=== PATIENT | male | born 1930 | race Native Hawaiian/Other Pacific Islander ===

== ENCOUNTER 2016-10-14 12:05 | Day surgery (SDC) | payer OTHER | END 2016-10-14 14:40 | disposition home or self-care (01) | LOC: OR 12:05 | PROC: 08RJ3JZ Replacement of Right Lens with Synthetic Substitute, Percutaneous Approach (ICD-10-PCS; principal; 2016-10-14) | DX: H25.811 Combined forms of age-related cataract, right eye (principal); H52.221 Regular astigmatism, right eye | CPT/HCPCS: 66984; V2632 ==

== ENCOUNTER 2016-11-11 08:23 | Day surgery (SDC) | payer OTHER ==
[~2016-11-11] VITALS: Ht 30.5 cm; Wt 0.5 kg
== END 2016-11-11 10:12 | disposition home or self-care (01) ==
LOC: OR 08:23
PROC: 08RK3JZ Replacement of Left Lens with Synthetic Substitute, Percutaneous Approach (ICD-10-PCS; principal; 2016-11-11)
DX: H25.812 Combined forms of age-related cataract, left eye (principal); H52.222 Regular astigmatism, left eye
CPT/HCPCS: 66984; V2632

== ENCOUNTER 2018-12-24 12:03 | Outpatient (CLI) | payer OTHER ==
[2018-12-24] MEDS ORDERED: BENICAR40 MG PO (12:32)
[2018-12-24] MEDS ORDERED: MIRAPEX0.25 MG PO (12:35)
[2018-12-24] MEDS ORDERED: METO50TA27 PO (12:36)
[2018-12-24] MEDS ORDERED: AMITRIPTYLIN50 MG PO (12:37)
== END 2018-12-24 12:10 | disposition short-term general hospital (02) ==
LOC: AMB 12:03
DX: R00.0 Tachycardia, unspecified (principal); R06.02 Shortness of breath
CPT/HCPCS: A0425; A0427

== ENCOUNTER 2018-12-24 12:13 | Emergency (ER) | payer OTHER ==
[~2018-12-24] VITALS: Ht 172.7 cm; Wt 90.7 kg
[2018-12-24 12:22] VITALS: TEMP 97.3
[2018-12-24] MEDS ORDERED: BENICAR40 MG PO (12:32)
[2018-12-24] MEDS ORDERED: MIRAPEX0.25 MG PO (12:35)
[2018-12-24] MEDS ORDERED: METO50TA27 PO (12:36)
[2018-12-24] MEDS ORDERED: AMITRIPTYLIN50 MG PO (12:37)
[2018-12-24 12:53] VITALS: BP 106/71
[2018-12-24 13:02] LABS: PLATELET COUNT 283 K/uL (142-355)
[2018-12-24 13:09] LABS: POTASSIUM 4.2 mmol/L (3.6-5.2)
== END 2018-12-24 13:45 | disposition short-term general hospital (02) ==
LOC: ED 12:13
PROVIDERS: Emergency Medicine
DX: R00.0 Tachycardia, unspecified (principal); I45.19 Other right bundle-branch block; R06.02 Shortness of breath
CPT/HCPCS: 36415; 80053; 82550; 83735; 83880; 84484; 85027; 93005; 99283

== ENCOUNTER 2018-12-24 13:46 | Outpatient (CLI) | payer OTHER ==
[~2018-12-24 13:46] MED LIST: AMITRIPTYLIN50 MG PO; BENICAR40 MG PO; METO50TA27 PO; MIRAPEX0.25 MG PO
== END 2018-12-24 14:17 | disposition short-term general hospital (02) ==
LOC: AMB 13:46
DX: R00.0 Tachycardia, unspecified (principal)
CPT/HCPCS: A0425; A0427

== ENCOUNTER 2019-05-24 13:54 | Outpatient (CLI) | payer OTHER | END 2019-05-24 20:15 | disposition home or self-care (01) | LOC: RESP 13:54 | DX: I48.91 Unspecified atrial fibrillation (principal) | CPT/HCPCS: 93225 ==

== ENCOUNTER 2019-06-21 11:21 | Outpatient (CLI) | payer OTHER ==
[2019-06-21] MEDS ORDERED: ELIQUIS5 MG PO (11:53)
[2019-06-21] MEDS ORDERED: GLIM2TAB PO (11:54)
[2019-06-21] MEDS ORDERED: CARTIA XT120 MG PO (11:54)
[2019-06-21] MEDS ORDERED: DIGITEK0.25 MG PO (11:55)
== END 2019-06-21 11:33 | disposition short-term general hospital (02) ==
LOC: AMB 11:21
DX: I48.91 Unspecified atrial fibrillation (principal); I45.2 Bifascicular block; R94.31 Abnormal electrocardiogram [ECG] [EKG]
CPT/HCPCS: A0425; A0427

== ENCOUNTER 2019-06-21 11:36 | Observation (INO) | payer OTHER ==
[2019-06-21] VITALS (10 sets, daily range): BP systolic 115–138; BP diastolic 47–62; TEMP 97.3–98.4; Ht 172.7 cm; Wt 77.3 kg
[~2019-06-21] VITALS: Ht 172.7 cm; Wt 77.3 kg
[2019-06-21] MEDS ORDERED: ELIQUIS5 MG PO (11:53)
[2019-06-21] MEDS ORDERED: CARTIA XT120 MG PO (11:54)
[2019-06-21] MEDS ORDERED: GLIM2TAB PO (11:54)
[2019-06-21] MEDS ORDERED: DIGITEK0.25 MG PO (11:55)
[2019-06-21 12:06] LABS: PLATELET COUNT 272 K/uL (142-355)
[2019-06-21 12:21] LABS: POTASSIUM 3.9 mmol/L (3.6-5.2); SODIUM 139 mmol/L (136-145)
[2019-06-21 13:03] LABS: PARTIAL THROMBOPLASTIN TIME 28.5 SECONDS (24.5-33.6)
[2019-06-22] VITALS: BP 136/67; TEMP 98.5
[2019-06-22 04:00] VITALS: BP 119/52; TEMP 98.1
[2019-06-22 08:00] VITALS: BP 178/58; TEMP 97.4
[2019-06-22 12:00] VITALS: BP 118/53; TEMP 98.3
== END 2019-06-22 13:05 | disposition home or self-care (01) ==
LOC: ED 11:43 → MED/SURG 13:50
PROVIDERS: ADMIT Emergency Medicine Emergency Medical Services
DX: I48.20 Chronic atrial fibrillation, unspecified (principal); R07.89 Other chest pain; R00.2 Palpitations; R00.0 Tachycardia, unspecified; E11.9 Type 2 diabetes mellitus without complications; D63.8 Anemia in other chronic diseases classified elsewhere; D72.828 Other elevated white blood cell count; Z79.01 Long term (current) use of anticoagulants; J44.9 Chronic obstructive pulmonary disease, unspecified; T46.0X5A Adverse effect of cardiac-stimulant glycosides and drugs of similar action, initial encounter
CPT/HCPCS: 36415; 80053; 80162; 81000; 82550; 83735; 83880; 84484; 85027; 85610; 85730; 93005; 99220; 99284; G0378